=== PATIENT | female | born 2005 | race Caucasian/White ===

== ENCOUNTER 2024-05-20 14:49 | Emergency (ER) | payer OTHER ==
[2024-05-20] MEDS ORDERED: Ibuprofen 200 MG TAB ONE (16:22)
[2024-05-20] MEDS ORDERED: Bupivacaine PF 0.5% 30 ML VIAL ONE (16:22)
[2024-05-20] MEDS ORDERED: Acetaminophen 500 MG TAB ONE (16:23)
== END 2024-05-20 18:09 | disposition home or self-care (01) ==
LOC: CSHERS 14:49
DX: S01.81XA Laceration without foreign body of other part of head, initial encounter (principal); S80.212A Abrasion, left knee, initial encounter; S80.211A Abrasion, right knee, initial encounter; S50.812A Abrasion of left forearm, initial encounter; Z55.0 Illiteracy and low-level literacy; W19.XXXA Unspecified fall, initial encounter
CPT/HCPCS: 12011; 99283; J0665

== ENCOUNTER 2024-05-26 15:05 | Emergency (ER) | payer OTHER | END 2024-05-26 15:48 | disposition home or self-care (01) | LOC: CSHERS 15:05 | DX: S01.81XD Laceration without foreign body of other part of head, subsequent encounter (principal); X58.XXXD Exposure to other specified factors, subsequent encounter ==